=== PATIENT | male | born 1955 | race Caucasian/White ===

== ENCOUNTER → 2019-05-16 | Outpatient (CLI) | payer MEDICARE ==
--- NOTE | 2019-05-16 14:13 | Diagnostic Imaging Report ---
INDICATION: Pancreatic carcinoma, restaging. TECHNIQUE: Serum blood glucose level at the time of injection was 109 mg/dL. The patient was administered 12.5 mCi F-18 FDG intravenously in the left antecubital location, and PET imaging was performed from the top of the skull to mid thighs. Noncontrast CT was also performed for attenuation correction and anatomic correlation. COMPARISON: No prior studies are available for comparison. FINDINGS: There is symmetric activity throughout the brain. Physiologic activity within the soft tissues of the neck is noted. No mediastinal or hilar hypermetabolism is seen. No pulmonary parenchymal hypermetabolism is identified. There is physiologic uptake throughout the gastrointestinal and genitourinary tracts. No abnormal hypermetabolism within the pancreas or pancreatic bed is identified. No hypermetabolic lymphadenopathy is seen. There is a nonobstructing calculus in the lower pole of the right kidney. IMPRESSION: 1. No suspicious hypermetabolism is identified. 2. Nonobstructing right lower pole renal calculus. Dictated by: Dictated on workstation # [id number]
== END ==
LOC: RAD 10:45
PROVIDERS: ATTEND Internal Medicine Hematology & Oncology
DX: C25.9 Malignant neoplasm of pancreas, unspecified (principal); N20.0 Calculus of kidney

== ENCOUNTER → 2022-06-12 | Outpatient (CLI) | payer MEDICARE ==
--- NOTE | 2022-06-12 15:53 | Diagnostic Imaging Report ---
PROCEDURE: MRI lumbar spine. TECHNIQUE: Multiplanar, multisequence MRI of the lumbar spine was performed without contrast. INDICATION: Chronic low back pain. COMPARISON: None FINDINGS: For the purposes of this exam, the last well-formed disc space is noted as the L5-S1 level. Static alignment of the the lumbar spine is maintained. There is no significant anteroretrolisthesis. There is no evidence of jumped facets. Evaluation of the vertebral body heights demonstrates multiple superior and inferior endplate Schmorl's nodes, particularly at L2, L3, and L4. There is mild superior endplate edema at L3 and L4, but this has an appearance more suggestive of Modic type I change, as opposed to an acute fracture. There is otherwise no convincing evidence of acute fracture of the lumbar spine. Note however is made of asymmetric edematous type signal within the included portions of the right sacral alar (image 23, series 3). There is also suggestion of a fracture line on the lower axial sequence (image 13, series 6). There is also mild multilevel intervertebral disc height loss with multilevel anterior and posterior disc bulging. Visualized portions of the distal cord are unremarkable. Conus terminates at approximately the T12-L1 level. No abnormal intrathecal filling defects are seen. Pre and paravertebral soft tissue structures are unremarkable. Axial images demonstrate the following: T12-L1: There is slight broad-based posterior disc bulge and bilateral facet arthropathy. There is however no significant spinal canal or neuroforaminal stenosis. L1-L2: There is broad-based posterior disc bulge, eccentric to the left. There is also bilateral ligamentum flavum laxity and facet arthropathy. As a result, there is mild narrowing of the spinal canal and bilateral neural foramen, left greater than right. L2-L3: There is broad-based posterior disc bulge with bilateral ligamentum flavum laxity and facet arthropathy. As a result, there is moderate to severe spinal canal stenosis. Thecal sac is narrowed to approximately 7 mm in AP dimension. There is also mild stenosis of the bilateral neural foramina. L3-L4: There is broad-based posterior disc bulge and bilateral ligamentum flavum laxity and facet arthropathy. As a result, there is moderate stenosis of the spinal canal and mild stenosis of the bilateral neural foramina. L4-L5: There is broad-based posterior disc bulge and bilateral ligamentum flavum laxity and facet arthropathy. As a result, there is moderate stenosis of the spinal canal and mild stenosis of the bilateral neural foramina. L5-S1: There is slight broad-based posterior disc bulge with endplate lateral osteophyte formations on the right. There is also bilateral facet arthropathy. As a result, there is mild stenosis of the right neuroforamen and minimal flattening of the anterior thecal sac. Left neuroforamen is unremarkable. IMPRESSION: 1. Findings concerning for insufficiency fracture of the right sacral ala. Further evaluation with dedicated pelvic sonogram or whole body bone scan is advised. 2. Chronic Schmorl's nodes with endplate deformities, but no acute fracture of the lumbar spine. 3. Moderate multilevel degenerative changes. Dictated by: Dictated on workstation # [id number]
== END ==
LOC: RAD 13:42
PROVIDERS: ATTEND Family Medicine
DX: M47.816 Spondylosis without myelopathy or radiculopathy, lumbar region (principal); M43.8X6 Other specified deforming dorsopathies, lumbar region; M51.36 Other intervertebral disc degeneration, lumbar region
CPT/HCPCS: 72148

== ENCOUNTER 2022-10-19 15:48 | Emergency (ER) | payer OTHER, MEDICAID ==
--- NOTE | 2022-10-19 16:26 | ED General ---
General Chief Complaint: Glucose Problems Stated Complaint: LOW BS Nursing Triage Note: PT REPORTS HE ATE LESS THAN HE NORMALLY DOES FOR LUNCH AND TOOK HIS NORMAL 10 UNITS OF INSULIN AT ABOUT 0930. HE WENT TO THE CLINIC AND HAD A HYPOGLYCEMIC EPISODE AND HIS BLOOD SUGAR DROPPED TO 54 AND HE WAS NOT RESPONDING TO STAFF. EMS CALLED AND PT WAS GIVEN GLUCAGON IM AND AN AMP OF D50 IV. PTS BLOOD SUGAR CAME UP TO 154. PTARRIVED A&O TO ER. Source of Information: Patient, EMS History of Present Illness Date Seen by Provider: Oct 19, 2022 Time Seen by Provider: 15:48 Initial Comments 67-year-old male presenting with EMS from the [facility] after he had a blood sugar to 54 and was not responding to the staff. He had come to see wound care with Dr. Baker here in [place] due to a diabetic ulcer on his left foot. He reports this is healing and doing better. He states that he had only eaten some canned peaches for lunch and took 5 units of NovoLog insulin around 1130. He has not had anything to eat since then. He had 3 egg omelet with onions and peppers as well as sausage this morning for breakfast but had no protein since then. EMS had given him glucagon IM and an amp of D50 IV when they arrived. His sugar came up to 154 and he was more alert and appropriate. He denied having pain anywhere. He was having no nausea, vomiting, pain with urination, change in his bowels. Timing/Duration: 1/2 Hour Modifying Factors: improves with Eating Associated Systoms: No Chest Pain, No Cough, No Diaphoresis, No Fever/Chills, No Headaches, No Nausea/Vomiting, No Seizure, No Shortness of Air; Weakness Allergies and Home Medications Allergies Coded Allergies: niacin (Verified Allergy, Unknown, 10/19/22) Patient Home Medication List Home Medication List Reviewed: Yes Review of Systems Review of Systems Constitutional: No chills, No fever EENTM: no symptoms reported Respiratory: no symptoms reported Cardiovascular: no symptoms reported Gastrointestinal: no symptoms reported Genitourinary: no symptoms reported Musculoskeletal: see HPI Skin: see HPI Psychiatric/Neurological: See HPI Past Tcauiam-Htleki-Bocwiq Hx Patient Social History Tobacco Use?: No Use of E-Cig and/or Vaping dev: No Substance use?: No Alcohol Use?: No Pt feels they are or have been: No Past Medical History Surgery/Hospitalization HX: TYPE 1 DIABETIC Respiratory: No Physical Exam Vital Signs Vital Signs - First Documented 10/19/22 16:00 Temp 36.0 Pulse 67 Resp 18 B/P (MAP) 148/88 (108) Pulse Ox 99 O2 Delivery Room Air Capillary Refill : Less Than 3 Seconds Height, Weight, BMI Height: '" Weight: lbs. oz. kg; BMI Method: General Appearance: No Apparent Distress, WD/WN HEENT: PERRL/EOMI, Pharynx Normal, Moist Mucous Membranes Neck: Full Range of Motion, Normal Inspection, Non Tender, Supple Respiratory: Chest Non Tender, Lungs Clear, Normal Breath Sounds, No Accessory Muscle Use, No Respiratory Distress Cardiovascular: Regular Rate, Rhythm, Normal Peripheral Pulses Gastrointestinal: Normal Bowel Sounds, No Pulsatile Mass, Non Tender, Soft Extremity: Normal Capillary Refill, Pedal Edema (1+ pedal edema BLE with mild erythema to left leg consistent with venous stasis changes) Neurologic/Psychiatric: Alert, Oriented x3 Skin: Warm/Dry Progress/Results/Core Measures Suspected Sepsis SIRS Temperature: Pulse: 67 Respiratory Rate: 18 Laboratory Tests 10/19/22 16:15: White Blood Count 5.8 Blood Pressure 148 /88 Mean: 108 Laboratory Tests 10/19/22 16:15: Creatinine 0.83, Platelet Count 185, Total Bilirubin 0.4 Results/Orders Lab Results Laboratory Tests Test 10/19/22 16:15 10/19/22 16:43 10/19/22 17:34 10/19/22 17:43 Range/Units White Blood Count 5.8 4.3-11.0 10^3/uL Red Blood Count 4.12 L 4.30-5.52 10^6/uL Hemoglobin 12.5 L 13.3-17.7 g/dL Hematocrit 38 L 40-54 % Mean Corpuscular Volume 93 80-99 fL Mean Corpuscular Hemoglobin 30 25-34 pg Mean Corpuscular Hemoglobin Concent 33 32-36 g/dL Red Cell Distribution Width 14.3 10.0-14.5 % Platelet Count 185 130-400 10^3/uL Mean Platelet Volume 9.4 9.0-12.2 fL Immature Granulocyte % (Auto) 0 % Neutrophils (%) (Auto) 79 H 42-75 % Lymphocytes (%) (Auto) 10 L 12-44 % Monocytes (%) (Auto) 7 0-12 % Eosinophils (%) (Auto) 3 0-10 % Basophils (%) (Auto) 1 0-10 % Neutrophils # (Auto) 4.6 1.8-7.8 10^3/uL Lymphocytes # (Auto) 0.6 L 1.0-4.0 10^3/uL Monocytes # (Auto) 0.4 0.0-1.0 10^3/uL Eosinophils # (Auto) 0.2 0.0-0.3 10^3/uL Basophils # (Auto) 0.0 0.0-0.1 10^3/uL Immature Granulocyte # (Auto) 0.0 0.0-0.1 10^3/uL Sodium Level 143 135-145 MMOL/L Potassium Level 3.1 L 3.6-5.0 MMOL/L Chloride Level 106 98-107 MMOL/L Carbon Dioxide Level 26 21-32 MMOL/L Anion Gap 11 5-14 MMOL/L Blood Urea Nitrogen 21 H 7-18 MG/DL Creatinine 0.83 0.60-1.30 MG/DL Estimat Glomerular Filtration Rate 95 BUN/Creatinine Ratio 25 Glucose Level 130 H 70-105 MG/DL Calcium Level 8.4 L 8.5-10.1 MG/DL Corrected Calcium 8.5 8.5-10.1 MG/DL Total Bilirubin 0.4 0.1-1.0 MG/DL Aspartate Amino Transf (AST/SGOT) 43 H 5-34 U/L Alanine Aminotransferase (ALT/SGPT) 35 0-55 U/L Alkaline Phosphatase 70 40-136 U/L Total Protein 7.3 6.4-8.2 GM/DL Albumin 3.9 3.2-4.5 GM/DL Lipase 5 L 8-78 U/L Glucometer 101 188 H 70-110 MG/DL Urine Color YELLOW Urine Clarity SL CLOUDY Urine pH 6.0 5-9 Urine Specific [place] 1.010 L 1.016-1.022 Urine Protein NEGATIVE NEGATIVE Urine Glucose (UA) 3+ H NEGATIVE Urine Ketones NEGATIVE NEGATIVE Urine Nitrite NEGATIVE NEGATIVE Urine Bilirubin NEGATIVE NEGATIVE Urine Urobilinogen 0.2 < = 1.0 MG/DL Urine Leukocyte Esterase NEGATIVE NEGATIVE Urine RBC (Auto) 1+ H NEGATIVE Urine RBC NONE /HPF Urine WBC 5-10 H /HPF Urine Squamous Epithelial Cells RARE /HPF Urine Crystals NONE /LPF Urine Bacteria MODERATE H /HPF Urine Casts NONE /LPF Urine Mucus NEGATIVE /LPF Urine Culture Indicated YES My Orders Orders - LANCE ANDREWS MD Comprehensive Metabolic Panel (10/19/22 16:19) Lipase (10/19/22 16:19) Ua Culture If Indicated (10/19/22 16:19) Ed Iv/Invasive Line Start (10/19/22 16:19) Cbc With Automated Diff (10/19/22 16:19) Accucheck Prn (10/19/22 16:19) Urine Culture (10/19/22 17:43) Vital Signs/I&O 10/19/22 10/19/22 16:00 18:18 Temp 36.0 36.0 Pulse 67 71 Resp 18 18 B/P (MAP) 148/88 (108) 136/76 Pulse Ox 99 99 O2 Delivery Room Air Room Air Capillary Refill : Less Than 3 Seconds Blood Pressure Mean: 108 Progress Note #1: Progress Note Presents with diagnosis of poor diet, noncompliance with medication, equipment hardware failure, electrolyte imbalance, renal failure, hepatic failure, urinary tract infection. EMS obtained peripheral IV access. We will send labs for complete blood count, comprehensive metabolic profile, lipase, urinalysis. Encourage patient to eat something here in the emergency department to help keep the sugar up. We will continue to monitor and recheck the sugar to ensure it was staying stable. From his description of his diet for today it sounds like he was not taking enough protein then to help maintain his sugars. The peaches that he had at lunchtime would be out of his system by the time he was seen in the wound care clinic this afternoon and could contribute to his sugar dropping so low. Progress Note #2: Progress Note He has no acute significant normality on his complete blood count to account for his symptoms. His comprehensive metabolic profile and Accu-Chek showed that his sugars were around 130 when he first got here. After eating it was noted that his glucose was 101. He was given a frozen pizza to have something more on his stomach. After this his sugar had gone up to 188. On his Dexcom it was reading approximately 70-80 points higher than what we got with the Accu-Chek. Advised to see if the clinic could calibrate this or he may need to use a different device or Accu-Chek at home. He remained stable and alert. He was ambulating on his own without difficulty and was discharged. Counseled to check back with his regular doctor and try to increase protein with his meals to keep his sugars at a more steady level. Departure Impression Primary Impression: Hypoglycemia associated with diabetes Additional Impression: Uses self-applied continuous glucose monitoring device Disposition: HOME, SELF-CARE Condition: Stable Departure-Patient Inst. Decision time for Depature: 18:13 Referrals: NO,LOCAL PHYSICIAN (PCP) Primary Care Physician [facility] [place] Patient Instructions: Low Blood Sugar, Adult ED, How to Keep Track of Your Blood Sugar, Diabetes and Diet Add. Discharge Instructions: Your Dexcom was reading 60-80 points higher than what we were getting here in the Emergency Department. Consider using a glucometer to compare to your Dexcom or seeing if you need to get a new Dexcom device or if the clinic has a way to help calibrate it so it reads more accurately. Try to improve your diet and make sure you are getting some protein with each meal to help keep your sugars more stable and steady. There was some bacteria in your urine specimen but we did not see other signs of a bladder infection. The lab will do a culture on this and if it shows that you need an antibiotic you will get a call in 2-3 days when those results come back. All discharge instructions reviewed with patient and/or family. Voiced understanding. LANCE ANDREWS MD Oct 19, 2022 16:26
[2022-10-19 16:28] LABS: BASOPHILS % (AUTO) 1 % (0-10); EOSINOPHILS # (AUTO) 0.2 10^3/uL (0.0-0.3); EOSINOPHILS % (AUTO) 3 % (0-10); HEMATOCRIT 38 % (40-54); HEMOGLOBIN 12.5 g/dL (13.3-17.7); LYMPHOCYTES # (AUTO) 0.6 10^3/uL (1.0-4.0); LYMPHOCYTES % (AUTO) 10 % (12-44); MEAN CORPUSCULAR HEMOGLOBIN 30 pg (25-34); MEAN CORPUSCULAR HGB CONC 33 g/dL (32-36); MEAN CORPUSCULAR VOLUME 93 fL (80-99); MEAN PLATELET VOLUME 9.4 fL (9.0-12.2); MONOCYTES # (AUTO) 0.4 10^3/uL (0.0-1.0); MONOCYTES % (AUTO) 7 % (0-12); NEUTROPHILS # (AUTO) 4.6 10^3/uL (1.8-7.8); NEUTROPHILS % (AUTO) 79 % (42-75); PLATELET COUNT 185 10^3/uL (130-400); WHITE BLOOD COUNT 5.8 10^3/uL (4.3-11.0)
[2022-10-19 16:44] LABS: POTASSIUM 3.1 MMOL/L (3.6-5.0)
[2022-10-19 16:45] LABS: BILIRUBIN,TOTAL 0.4 MG/DL (0.1-1.0); CALCIUM 8.4 MG/DL (8.5-10.1); CREATININE SERUM 0.83 MG/DL (0.60-1.30); TOTAL PROTEIN 7.3 GM/DL (6.4-8.2)
[2022-10-19 16:46] LABS: ALBUMIN 3.9 GM/DL (3.2-4.5)
[2022-10-19 18:01] LABS: BILIRUBIN,URINE NEGATIVE (NEGATIVE); CLARITY,URINE SL CLOUDY; COLOR,URINE YELLOW; GLUCOSE, URINE (UA) 3+ (NEGATIVE); KETONES,URINE NEGATIVE (NEGATIVE); LEUKOCYTE ESTERASE ,URINE NEGATIVE (NEGATIVE); NITRITE,URINE NEGATIVE (NEGATIVE); PROTEIN,URINE NEGATIVE (NEGATIVE)
[2022-10-19 18:11] LABS: BACTERIA,URINE MODERATE /HPF; SQUAMOUS EPITHELIAL CELL,UR RARE /HPF
[2022-10-19 18:18] VITALS: BP 136/76
[2022-10-21] MEDS ORDERED: SULF1TAB38 PO (10:58)
== END 2022-10-19 18:19 | disposition home or self-care (01) ==
LOC: EDUNIT# 15:48 → ER FS 15:49
DX: E10.649 Type 1 diabetes mellitus with hypoglycemia without coma (principal); Z96.41 Presence of insulin pump (external) (internal)
CPT/HCPCS: 36415; 80053; 81000; 82947; 83690; 85025; 87077; 87088; 87186